=== PATIENT | male | born 1970 | race Hispanic/Latino ===

== ENCOUNTER 2024-04-06 13:58 | Inpatient (IN) | payer MEDICARE, OTHER ==
[~2024-04-06] VITALS: Ht 195.6 cm; Wt 220.0 kg
[~2024-04-06 13:58] MED LIST: Z NIFEDIPINE; Z.0.LISINOPRIL20 MG PO; Z.0.METOPROLOL SUC10; [UNRECOGNIZED DRUG - OTHER]; [UNRECOGNIZED DRUG - OTHER]
[2024-04-06] MEDS ORDERED: SODIUM CHLORIDE FLUSH 10 ML SYR IV PRN (15:00)
[2024-04-06 15:16] LABS: BASOPHILS # (AUTO) 0.1 (0.0-0.1); BASOPHILS % 0.9 % (0.0-1.0); EOSINOPHILS # (AUTO) 0.2 (0.0-0.4); EOSINOPHILS % 2.6 % (0.0-6.0); HEMATOCRIT 45.8 % (38.2-49.6); HEMOGLOBIN 13.4 g/dL (14.0-18.0); LYMPHOCYTES # (AUTO) 1.2 (1.0-3.2); LYMPHOCYTES % 15.8 % (18.0-39.1); MEAN CORPUSCULAR HEMOGLOBIN 28.1 pg (28-32); MEAN CORPUSCULAR HGB CONC 29.3 g/dL (31-35); MONOCYTES # (AUTO) 0.7 (0.2-0.8); MONOCYTES % 9.6 % (4.4-11.3); NEUTROPHILS # (AUTO) 5.4 (2.1-6.9); NEUTROPHILS % 70.8 % (38.7-80.0); PLATELET COUNT 288 x10e3/uL (140-360); RED BLOOD COUNT 4.77 x10e6/uL (4.3-5.7); RED CELL DISTRIBUTION WIDTH 16.3 % (11.7-14.4); WHITE BLOOD COUNT 7.68 x10e3/uL (4.8-10.8)
[2024-04-06 15:28] LABS: ALBUMIN 3.1 g/dL (3.5-5.0); ALBUMIN/GLOBULIN RATIO 0.6 (0.8-2.0); ANION GAP 16.7 mmol/L (8-16); BILIRUBIN,TOTAL 2.4 mg/dL (0.2-1.2); CALCIUM 9.1 mg/dL (8.4-10.2); CREATININE, SERUM 1.54 mg/dL (0.72-1.25); POTASSIUM 3.7 mmol/L (3.5-5.1)
[2024-04-06 15:34] LABS: TROPONIN I 0.035 ng/mL (0-0.300)
[2024-04-06] MEDS: ENOXAPARIN SODIUM INJ 100 MG/ML SYR SC SCH (16:03)
[2024-04-06] MEDS ORDERED: SODIUM CHLORIDE FLUSH 10 ML SYR INJ PRN (16:15)
[2024-04-06] MEDS ORDERED: ONDANSETRON HCL INJ 2MG/ML 2ML 2 MG/ML VIAL IV PRN (16:15)
[2024-04-06] MEDS ORDERED: FUROSEMIDE INJ 10 MG/ML 4 ML VIAL IV SCH (16:15)
[2024-04-06 16:22] LABS: INR 1.05; PROTHROMBIN TIME 14.3 seconds (11.9-14.5)
[2024-04-06 16:23] LABS: PARTIAL THROMBOPLASTIN TIME 30.3 seconds (23.8-35.5)
[2024-04-06] MEDS ORDERED: DEXTROSE 50% SYRINGE 50 ML IV PRN (16:45)
[2024-04-06] MEDS ORDERED: ALBUTEROL/IPRATROPIUM 3 ML NEB NEB PRN (16:45)
[2024-04-06] MEDS ORDERED: SIMETHICONE 80 MG CHEW PO PRN (16:45)
[2024-04-06] MEDS ORDERED: MELATONIN 5 MG TABLET PO PRN (16:45)
[2024-04-06] MEDS ORDERED: BENZONATATE 100 MG CAP PO PRN (16:45)
[2024-04-06] MEDS ORDERED: DOCUSATE SODIUM 100 MG CAP PO PRN (16:45)
[2024-04-06] MEDS ORDERED: DIPHENHYDRAMINE HCL 25 MG CAP PO PRN (16:45)
[2024-04-06] MEDS ORDERED: HYDROCODONE/APAP 5MG-325MG TAB PO PRN (16:45)
[2024-04-06] MEDS ORDERED: HYDRALAZINE HCL 20 MG/ML VIAL IV PRN (16:45)
[2024-04-06] MEDS ORDERED: LIDOCAINE 4% PATCH TP PRN (16:45)
[2024-04-06 16:56] VITALS: TEMP 98.3
[2024-04-06] MEDS: FUROSEMIDE INJ 100 MG in SODIUM CHLORIDE 0.9% 90 ML IV SCH ×2 (17:00→23:35)
[2024-04-06 17:25] VITALS: PULSE 71; RESP 18
[2024-04-06] MEDS: SPIRONOLACTONE 25 MG TAB PO SCH (18:27)
[2024-04-06 18:30] VITALS: BP 161/105; PULSE 87; RESP 18; TEMP 97.8; O2SAT 98
[2024-04-06] MEDS: METOLAZONE 5 MG TAB PO ONE ×2 (18:58→19:48)
[2024-04-06 23:28] VITALS: BP_SYST 102; PULSE 86; RESP 18; TEMP 97.3; O2SAT 95
[2024-04-07] VITALS (8 sets, daily range): BP systolic 102–157; BP diastolic 74–105; PULSE 59–100; RESP 17–20; TEMP 97.3–98.5; O2SAT 92–96
[2024-04-07] MEDS ORDERED: FUROSEMIDE40 MG PO (00:20)
[2024-04-07] MEDS ORDERED: CLONIDINE HCL0.1 MG PO (00:20)
[2024-04-07] MEDS ORDERED: ALLOPURINOL300 MG PO (00:20)
[2024-04-07] MEDS ORDERED: HYDRALAZINE HC100 MG PO (00:20)
[2024-04-07] MEDS ORDERED: CARVEDILOL12.5 MG PO (00:21)
[2024-04-07] MEDS ORDERED: ASPIRIN325 MG PO (00:21)
[2024-04-07] MEDS ORDERED: PLAVIX75 MG PO (00:21)
[2024-04-07] MEDS ORDERED: IBUPROFEN200 MG PO (00:21)
[2024-04-07 05:50] LABS: BASOPHILS # (AUTO) 0.1 (0.0-0.1); EOSINOPHILS # (AUTO) 0.2 (0.0-0.4); EOSINOPHILS % 3.1 % (0.0-6.0); HEMATOCRIT 41.6 % (38.2-49.6); HEMOGLOBIN 12.2 g/dL (14.0-18.0); LYMPHOCYTES # (AUTO) 1.5 (1.0-3.2); LYMPHOCYTES % 19.2 % (18.0-39.1); MEAN CORPUSCULAR HEMOGLOBIN 27.9 pg (28-32); MEAN CORPUSCULAR HGB CONC 29.3 g/dL (31-35); MONOCYTES # (AUTO) 0.8 (0.2-0.8); MONOCYTES % 9.7 % (4.4-11.3); NEUTROPHILS # (AUTO) 5.1 (2.1-6.9); NEUTROPHILS % 66.9 % (38.7-80.0); PLATELET COUNT 278 x10e3/uL (140-360); RED BLOOD COUNT 4.38 x10e6/uL (4.3-5.7)
[2024-04-07] MEDS: ENOXAPARIN SODIUM INJ 100 MG/ML SYR SC SCH (06:00)
[2024-04-07 06:18] LABS: ALBUMIN 2.9 g/dL (3.5-5.0); ALBUMIN/GLOBULIN RATIO 0.6 (0.8-2.0); ANION GAP 16.2 mmol/L (8-16); BILIRUBIN,TOTAL 2.8 mg/dL (0.2-1.2); CALCIUM 9.1 mg/dL (8.4-10.2); CREATININE, SERUM 1.46 mg/dL (0.72-1.25); TOTAL PROTEIN 7.5 g/dL (6.5-8.1)
[2024-04-07] MEDS: PANTOPRAZOLE SOD 40 MG TABEC PO SCH (06:25)
[2024-04-07 06:27] LABS: POTASSIUM 3.2 mmol/L (3.5-5.1)
[2024-04-07 06:43] LABS: CHOL/HDL RATIO 3.7 (3.9-4.7); MAGNESIUM 2.1 MG/DL (1.3-2.1); PHOSPHORUS 3.5 MG/DL (2.3-4.7)
[2024-04-07 07:02] LABS: TROPONIN I 0.028 ng/mL (0-0.300)
[2024-04-07 07:03] LABS: THYROID STIMULATING HORMONE 3.687 uIU/mL (0.350-4.940)
[2024-04-07] MEDS ORDERED: ASPIRIN 325 MG TAB PO SCH (09:00)
[2024-04-07] MEDS ORDERED: ENOXAPARIN SODIUM INJ 100 MG/ML SYR SC SCH (09:00)
[2024-04-07] MEDS: CARVEDILOL 12.5 MG TAB PO SCH ×2 (11:02→20:51)
[2024-04-07] MEDS: CLOPIDOGREL BISULFATE 75 MG TAB PO SCH (11:03)
[2024-04-07] MEDS: ENOXAPARIN SOD INJ 40 MG/0.4 ML SYR SC SCH (11:03)
[2024-04-07] MEDS: POTASSIUM CHLORIDE 20 MEQ TAB CR PO PRN (11:03)
[2024-04-07 12:11] LABS: ABG HCO3 42 mmol/L (22-26); ABG PCO2 55 mmHg (35-45); ABG PH 7.49 (7.35-7.45); ABG PO2 56 mmHg (80-105); ABG TCO2 44
[2024-04-07] MEDS: POTASSIUM CHLORIDE 20 MEQ TAB CR PO ONE (13:50)
[2024-04-07] MEDS: METOLAZONE 5 MG TAB PO ONE (13:50)
[2024-04-07 14:22] LABS: ABG HCO3 42 mmol/L (22-26); ABG PCO2 55 mmHg (35-45); ABG PH 7.49 (7.35-7.45); ABG PO2 56 mmHg (80-105); ABG TCO2 44
[2024-04-07 19:37] LABS: BILIRUBIN,URINE NEGATIVE (NEGATIVE); CLARITY,URINE CLEAR (CLEAR); COLOR,URINE YELLOW (YELLOW); GLUCOSE, URINE NEGATIVE (NEGATIVE); KETONES,URINE NEGATIVE (NEGATIVE); LEUKOCYTE ESTERASE ,URINE NEGATIVE (NEGATIVE); NITRITE,URINE NEGATIVE (NEGATIVE); PH,URINE 7 (5 - 7); PROTEIN,URINE DIPSTICK NEGATIVE (NEGATIVE); URINE UROBILINOGEN 0.2 mg/dL (0.2 - 1)
[2024-04-07 19:49] LABS: BACTERIA,URINE FEW /HPF; EPITHELIAL CELLS,URINE RARE /LPF; RBC,URINE 0-5 /HPF (0-5); WBC,URINE (MAN) 0-5 /HPF (0-5)
[2024-04-07] MEDS ORDERED: GUAIFENESIN 200 MG/10 ML UDC PO PRN (20:00)
[2024-04-08] VITALS (8 sets, daily range): BP systolic 123–153; BP diastolic 74–96; PULSE 73–89; RESP 18–20; TEMP 97.8–98.5; O2SAT 94–96
[2024-04-08 05:05] LABS: BASOPHILS # (AUTO) 0.1 (0.0-0.1); BASOPHILS % 0.7 % (0.0-1.0); EOSINOPHILS # (AUTO) 0.2 (0.0-0.4); EOSINOPHILS % 2.7 % (0.0-6.0); HEMATOCRIT 42.9 % (38.2-49.6); HEMOGLOBIN 12.6 g/dL (14.0-18.0); LYMPHOCYTES # (AUTO) 1.6 (1.0-3.2); LYMPHOCYTES % 17.7 % (18.0-39.1); MEAN CORPUSCULAR HEMOGLOBIN 27.8 pg (28-32); MEAN CORPUSCULAR HGB CONC 29.4 g/dL (31-35); MEAN CORPUSCULAR VOLUME 94.7 fL (81-99); MONOCYTES # (AUTO) 0.9 (0.2-0.8); MONOCYTES % 10.4 % (4.4-11.3); NEUTROPHILS % 68.3 % (38.7-80.0); PLATELET COUNT 281 x10e3/uL (140-360); RED BLOOD COUNT 4.53 x10e6/uL (4.3-5.7); RED CELL DISTRIBUTION WIDTH 15.9 % (11.7-14.4); WHITE BLOOD COUNT 8.78 x10e3/uL (4.8-10.8)
[2024-04-08 05:34] LABS: ANION GAP 16.5 mmol/L (8-16); CALCIUM 9.3 mg/dL (8.4-10.2); CREATININE, SERUM 1.51 mg/dL (0.72-1.25); POTASSIUM 3.5 mmol/L (3.5-5.1)
[2024-04-08] MEDS: ACETAMINOPHEN 325 MG TAB PO PRN (06:21)
[2024-04-08] MEDS: ASPIRIN 81 MG CHEW TAB PO SCH (09:59)
[2024-04-08] MEDS: POTASSIUM CHLORIDE 20 MEQ TAB CR PO SCH (10:00)
[2024-04-08] MEDS: CEPACOL SORE THROAT LOZENGES PO PRN (14:36)
[2024-04-08] MEDS: FUROSEMIDE INJ 10 MG/ML 4 ML VIAL IV SCH (17:38)
[2024-04-08 19:06] LABS: TROPONIN I 0.034 ng/mL (0-0.300)
[2024-04-09] VITALS (9 sets, daily range): BP systolic 118–145; BP diastolic 72–101; PULSE 63–98; RESP 18–22; TEMP 97.9–98.2; O2SAT 95–98
[2024-04-09 05:05] LABS: BASOPHILS # (AUTO) 0.1 (0.0-0.1); BASOPHILS % 0.9 % (0.0-1.0); EOSINOPHILS # (AUTO) 0.3 (0.0-0.4); EOSINOPHILS % 3.5 % (0.0-6.0); HEMATOCRIT 43.3 % (38.2-49.6); HEMOGLOBIN 13.5 g/dL (14.0-18.0); LYMPHOCYTES # (AUTO) 1.5 (1.0-3.2); LYMPHOCYTES % 17.1 % (18.0-39.1); MEAN CORPUSCULAR HEMOGLOBIN 27.7 pg (28-32); MEAN CORPUSCULAR HGB CONC 31.2 g/dL (31-35); MEAN CORPUSCULAR VOLUME 88.9 fL (81-99); MONOCYTES % 11.7 % (4.4-11.3); NEUTROPHILS # (AUTO) 5.9 (2.1-6.9); NEUTROPHILS % 66.5 % (38.7-80.0); PLATELET COUNT 297 x10e3/uL (140-360); RED BLOOD COUNT 4.87 x10e6/uL (4.3-5.7); RED CELL DISTRIBUTION WIDTH 15.8 % (11.7-14.4); WHITE BLOOD COUNT 8.82 x10e3/uL (4.8-10.8)
[2024-04-09 05:33] LABS: ANION GAP 17.3 mmol/L (8-16); CALCIUM 9.5 mg/dL (8.4-10.2); CREATININE, SERUM 1.68 mg/dL (0.72-1.25)
[2024-04-09 05:34] LABS: POTASSIUM 3.3 mmol/L (3.5-5.1)
[2024-04-10] VITALS (10 sets, daily range): BP systolic 101–133; BP diastolic 63–73; PULSE 62–92; RESP 15–18; TEMP 97.5–98.2; O2SAT 90–96
[2024-04-10 07:28] LABS: BASOPHILS # (AUTO) 0.1 (0.0-0.1); BASOPHILS % 0.8 % (0.0-1.0); EOSINOPHILS # (AUTO) 0.2 (0.0-0.4); EOSINOPHILS % 1.8 % (0.0-6.0); HEMATOCRIT 47.2 % (38.2-49.6); HEMOGLOBIN 14.7 g/dL (14.0-18.0); LYMPHOCYTES # (AUTO) 1.8 (1.0-3.2); LYMPHOCYTES % 17.3 % (18.0-39.1); MEAN CORPUSCULAR HEMOGLOBIN 27.5 pg (28-32); MEAN CORPUSCULAR HGB CONC 31.1 g/dL (31-35); MEAN CORPUSCULAR VOLUME 88.2 fL (81-99); MONOCYTES # (AUTO) 1.1 (0.2-0.8); MONOCYTES % 10.6 % (4.4-11.3); NEUTROPHILS # (AUTO) 7.2 (2.1-6.9); NEUTROPHILS % 69.1 % (38.7-80.0); PLATELET COUNT 372 x10e3/uL (140-360); RED BLOOD COUNT 5.35 x10e6/uL (4.3-5.7); RED CELL DISTRIBUTION WIDTH 16.3 % (11.7-14.4); WHITE BLOOD COUNT 10.41 x10e3/uL (4.8-10.8)
[2024-04-10 07:52] LABS: ANION GAP 19.3 mmol/L (8-16); CREATININE, SERUM 1.91 mg/dL (0.72-1.25)
[2024-04-10 07:53] LABS: POTASSIUM 3.3 mmol/L (3.5-5.1)
[2024-04-10] MEDS: ACETAZOLAMIDE 250 MG TAB PO SCH (09:55)
[2024-04-10] MEDS ORDERED: SODIUM CHLORIDE 0.9% 1000ML 1,000 ML IV SCH (15:30)
[2024-04-10] MEDS: POTASSIUM CHLORIDE 20 MEQ TAB CR PO ONE (17:36)
[2024-04-10] MEDS: SACUBITRIL/VALSARTAN 24MG/26MG 1 EA TAB PO SCH (17:36)
[2024-04-10] MEDS: APIXABAN 5 MG TABLET PO SCH (22:22)
[2024-04-11] VITALS: BP 206/144; PULSE 82; RESP 18; TEMP 97.4; O2SAT 92
[2024-04-11 04:00] VITALS: BP 100/60; PULSE 81; RESP 18; TEMP 97.6; O2SAT 93
[2024-04-11 07:32] LABS: BASOPHILS # (AUTO) 0.1 (0.0-0.1); EOSINOPHILS # (AUTO) 0.2 (0.0-0.4); EOSINOPHILS % 2.7 % (0.0-6.0); HEMATOCRIT 49.5 % (38.2-49.6); HEMOGLOBIN 14.7 g/dL (14.0-18.0); LYMPHOCYTES # (AUTO) 1.9 (1.0-3.2); LYMPHOCYTES % 21.8 % (18.0-39.1); MEAN CORPUSCULAR HEMOGLOBIN 27.6 pg (28-32); MEAN CORPUSCULAR HGB CONC 29.7 g/dL (31-35); MEAN CORPUSCULAR VOLUME 92.9 fL (81-99); MONOCYTES # (AUTO) 0.9 (0.2-0.8); MONOCYTES % 10.3 % (4.4-11.3); NEUTROPHILS # (AUTO) 5.6 (2.1-6.9); NEUTROPHILS % 63.9 % (38.7-80.0); PLATELET COUNT 325 x10e3/uL (140-360); RED BLOOD COUNT 5.33 x10e6/uL (4.3-5.7); RED CELL DISTRIBUTION WIDTH 16.1 % (11.7-14.4); WHITE BLOOD COUNT 8.84 x10e3/uL (4.8-10.8)
[2024-04-11 07:47] VITALS: PULSE 76; RESP 18; O2SAT 96
[2024-04-11 08:00] VITALS: BP 107/74; PULSE 83; RESP 18; TEMP 97.8; O2SAT 94
[2024-04-11 08:07] LABS: ANION GAP 17.3 mmol/L (8-16); CALCIUM 9.5 mg/dL (8.4-10.2); CREATININE, SERUM 2.01 mg/dL (0.72-1.25)
[2024-04-11 08:10] LABS: POTASSIUM 3.3 mmol/L (3.5-5.1)
[2024-04-11 09:00] VITALS: BP 107/74; PULSE 83; RESP 18; TEMP 97.8; O2SAT 94
[2024-04-11] MEDS: BUMETANIDE 1 MG TAB PO SCH (09:30)
[2024-04-11] MEDS: POTASSIUM CHLORIDE 20 MEQ TAB CR PO SCH (09:31)
[2024-04-11] MEDS: SODIUM CHLORIDE 0.9% 250ML 250 ML ONE (09:59)
[2024-04-11] MEDS: POTASSIUM CHLORIDE 20 MEQ TAB CR PO ONE (15:44)
[2024-04-11 16:00] VITALS: BP 123/62; PULSE 66; RESP 18; TEMP 97.9; O2SAT 94
== END 2024-04-11 17:45 | disposition home health service (06) | DRG 291 ==
LOC: ER 14:38 → ERHOLD 16:20 → MED/SURG 17:49
PROVIDERS: ADMIT Internal Medicine; ATTEND Internal Medicine
PROC: 4A033R1 Measurement of Arterial Saturation, Peripheral, Percutaneous Approach (ICD-10-PCS; principal; 2024-04-07)
PROC: 4A033R1 Measurement of Arterial Saturation, Peripheral, Percutaneous Approach (ICD-10-PCS; 2024-04-07)
DX: I13.0 Hypertensive heart and chronic kidney disease with heart failure and stage 1 through stage 4 chronic kidney disease, or unspecified chronic kidney disease (principal); I50.43 Acute on chronic combined systolic (congestive) and diastolic (congestive) heart failure; J96.01 Acute respiratory failure with hypoxia; N17.9 Acute kidney failure, unspecified; L03.311 Cellulitis of abdominal wall; Z68.43 Body mass index [BMI] 50.0-59.9, adult; L97.829 Non-pressure chronic ulcer of other part of left lower leg with unspecified severity; N18.30 Chronic kidney disease, stage 3 unspecified; I83.028 Varicose veins of left lower extremity with ulcer other part of lower leg; I48.91 Unspecified atrial fibrillation; M10.9 Gout, unspecified; I25.10 Atherosclerotic heart disease of native coronary artery without angina pectoris; Z79.02 Long term (current) use of antithrombotics/antiplatelets; E66.01 Morbid (severe) obesity due to excess calories; G47.33 Obstructive sleep apnea (adult) (pediatric); I87.2 Venous insufficiency (chronic) (peripheral); K80.20 Calculus of gallbladder without cholecystitis without obstruction; K82.8 Other specified diseases of gallbladder; I89.0 Lymphedema, not elsewhere classified; L30.9 Dermatitis, unspecified; Z79.899 Other long term (current) drug therapy
CPT/HCPCS: 36415; 36600; 71045; 76700; 76770; 80048; 80053; 80061; 81001; 82550; 82805; 82948; 83036; 83735; 83880; 84100; 84156; 84443; 84484; 85025; 85610; 85730; 93005; 93306; 93922; 93925; 93970; 94660; 94760; 94799; 99252; 99284; J0295; J1650; J1940; J7050